=== PATIENT | female | born 1985 | race Caucasian/White ===

== ENCOUNTER 2022-06-14 13:11 | Emergency (ER) | payer SELFPAY ==
[~2022-06-14] VITALS: Ht 170.2 cm; Wt 68.0 kg
--- NOTE | 2022-06-14 13:33 | NUR ---
Iced water provided per patient's request.
--- NOTE | 2022-06-14 13:38 | NUR ---
MD at bedside for evaluation
[2022-06-14 15:07] VITALS: BP 126/92
--- NOTE | 2022-06-14 15:08 | NUR ---
Patient discharged to home in stable condition. Written and verbal after care instructions given. Patient verbalizes understanding of instructions. Stressed follow up or return to ER for worsening s/s.
== END 2022-06-14 15:09 | disposition home or self-care (01) ==
LOC: ER 13:11
DX: Z71.1 Person with feared health complaint in whom no diagnosis is made (principal); Z59.01 Sheltered homelessness
CPT/HCPCS: A4663